=== PATIENT | female | born 1995 | race Caucasian/White ===

== ENCOUNTER 2018-01-30 12:36 | Outpatient (CLI) | payer OTHER ==
--- NOTE | 2018-01-30 15:08 | MRI ---
MRI BRAIN WITH AND WITHOUT CONTRAST: HISTORY: 22-year-old female with complex partial seizures, G40.209. TECHNIQUE: Multiple sequences obtained in axial, sagittal, and coronal planes; pre and post IV injection of gado linium-based contrast agent: 17 mL MultiHance. FINDINGS: The ventricles are normal in size and configuration. There is no major intraaxial signal abnormality , restricted diffusion, abnormal intraaxial enhancement, mass, midline shift or any other mass effect , recent intraaxial hemorrhage, or extraaxial fluid collection. The mesial temporal lobe structures, especially the hippocampi, are bilaterally symmetrical, with no focal signal abnormality. There is no evidence of recent or remote intra-axial hemorrhage. IMPRESSION: Normal. jnr POS: ANA MARIA
[2018-01-30] MEDS ORDERED: Gadobenate Dimeglumine 529 MG/1 ML (20ML VIAL) ONE (16:03)
== END 2018-01-30 12:37 | disposition home or self-care (01) ==
LOC: TBSIIMAG 12:36
PROVIDERS: ATTEND Psychiatry & Neurology Neurology
DX: G40.209 Localization-related (focal) (partial) symptomatic epilepsy and epileptic syndromes with complex partial seizures, not intractable, without status epilepticus (principal)
CPT/HCPCS: 70553; A9579

== ENCOUNTER 2018-03-07 12:44 | Outpatient (CLI) | payer OTHER | END 2018-03-07 12:45 | disposition home or self-care (01) | LOC: EEG 12:44 | PROVIDERS: ATTEND Psychiatry & Neurology Neurology | DX: G40.209 Localization-related (focal) (partial) symptomatic epilepsy and epileptic syndromes with complex partial seizures, not intractable, without status epilepticus (principal) | CPT/HCPCS: 95816 ==